=== PATIENT | male | born 2000 | race African-American/Black ===

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

== ENCOUNTER 2025-03-04 18:00 | Emergency (ER) | payer MEDICAID, OTHER ==
[~2025-03-04] VITALS: Ht 182.9 cm; Wt 92.0 kg
[2025-03-04 18:05] VITALS: O2SAT 100
[2025-03-04] MEDS: MORPHINE SULFATE 4 MG/ML INJ (FOR IV/IM USE) IM ONE (20:06)
[2025-03-04 20:10] VITALS: BP 129/74; PULSE 95; RESP 12; TEMP 36.9; O2SAT 100
== END 2025-03-04 20:55 | disposition home or self-care (01) ==
LOC: ER 18:00
DX: S70.01XA Contusion of right hip, initial encounter (principal); S80.01XA Contusion of right knee, initial encounter; F12.10 Cannabis abuse, uncomplicated; J45.909 Unspecified asthma, uncomplicated; V49.40XA Driver injured in collision with unspecified motor vehicles in traffic accident, initial encounter; Y93.89 Activity, other specified; Y92.410 Unspecified street and highway as the place of occurrence of the external cause; Y99.8 Other external cause status
CPT/HCPCS: 99284; 72170; 73562; 73590; 96372; J2270